=== PATIENT | female | born 1955 ===

== ENCOUNTER 2016-08-19 13:07 | Emergency (ER) | payer OTHER ==
[2016-08-19 13:14] VITALS: TEMP 98.2
--- NOTE | 2016-08-19 13:59 | C.PDOC ---
<Jessika Farah - Last Filed: 08/19/16 13:44> <George Newton - Last Filed: 08/19/16 14:20> Chief Complaint (Nursing): Psychiatric Evaluation Past Medical History - Medical History PMH: Depression - Social History Hx Alcohol Use: No Hx Substance Use: No - Immunization History Hx Tetanus Toxoid Vaccination: No Hx Influenza Vaccination: No Hx Pneumococcal Vaccination: No <Jessika Farah - Last Filed: 08/19/16 13:44> ED Course And Treatment O2 Sat by Pulse Oximetry: 100 <Jessika Farah - Last Filed: 08/19/16 13:44> Pulse Ox Interpretation: Normal Progress Note: Crisis d/w pt- already has opt psych and f/u @ [facility]. Cancel all labs and opt f/u. <George Newton - Last Filed: 08/19/16 14:20> Medical Decision Making <Jessika Farah - Last Filed: 08/19/16 13:44> <George Newton - Last Filed: 08/19/16 14:20> Medical Decision Making: depression, anxiety about financial and immigration status. (George Newton) Disposition <Jessika Farah - Last Filed: 08/19/16 13:44> Doctor Will See Patient In The: Office Counseled Patient/Family Regarding: Studies Performed, Diagnosis - Disposition Disposition Time: 14:20 <George Newton - Last Filed: 08/19/16 14:20> - Disposition Disposition: HOME/ ROUTINE Condition: GOOD - Clinical Impression Clinical Impression: Anxiety and depression
[2016-08-19 14:49] VITALS: BP 126/85; PULSE 72; RESP 16; O2SAT 98
--- NOTE | 2016-08-19 14:55 | C.PDOC ---
History Of Present Illness 60 year old patient, with a past medical history of depression, presents to the ED complaining of depression and anxiety about her domestic and financial situation. Patient is currently seen by a psychiatrist (Dr. Crandall-spelling is questionable as per patient) at [facility]. Patient denies suicidal ideation, homicidal ideation, or any other complaints at this time. Time Seen by Provider: 08/19/16 14:01 Chief Complaint (Nursing): Psychiatric Evaluation History Per: Patient History/Exam Limitations: no limitations Onset/Duration Of Symptoms: Other Current Symptoms Are (Timing): Still Present Suicide/Self Injury Attempted (Context): Cut Wrists Modifying Factor(s): None Severity: None Pain Scale Rating Of: 0 Associated Symptoms: Anxiety, Depression Recent travel outside of the [place]: No Past Medical History Reviewed: Historical Data, Nursing Documentation, Vital Signs Vital Signs: Last Vital Signs Temp 98.2 F 08/19/16 14:48 Pulse 72 08/19/16 14:48 Resp 16 08/19/16 14:48 BP 126/85 08/19/16 14:48 Pulse Ox 98 08/19/16 14:58 - Medical History PMH: Depression Family History: States: Unknown Family Hx - Social History Hx Alcohol Use: No Hx Substance Use: No - Immunization History Hx Tetanus Toxoid Vaccination: No Hx Influenza Vaccination: No Hx Pneumococcal Vaccination: No Review Of Systems Except As Marked, All Systems Reviewed And Found Negative. Psych: Positive for: Anxiety, Depression. Negative for: Suicidal ideation Physical Exam - Physical Exam Appears: Non-toxic, No Acute Distress Skin: Warm, Dry Head: Atraumatic, Normacephalic Neck: Normal ROM, Supple Chest: Symmetrical Cardiovascular: Rhythm Regular Respiratory: No Accessory Muscle Use Back: Normal Inspection Extremity: Normal ROM Neurological/Psych: Oriented x3 Gait: Steady ED Course And Treatment O2 Sat by Pulse Oximetry: 98 (room air) Pulse Ox Interpretation: Normal Progress Note: Plan: -Labs. Case was discussed with crisis who will evaluate the patient at bedside. Patient was evaluated by crisis and cleared for discharge. Disposition - Disposition Referrals: [facility] [Outside] [facility] [Outside] Disposition: HOME/ ROUTINE Disposition Time: 14:20 Condition: STABLE Additional Instructions: follow-up with Hugh Brenner as already arranged Return to ED if needed. Instructions: Anxiety (ED) - Clinical Impression Clinical Impression: Anxiety and depression - Scribe Statement The provider has reviewed the documentation as recorded by the Scribe Evita Gray Provider Attestation: All medical record entries made by the Scribe were at my direction and personally dictated by me. I have reviewed the chart and agree that the record accurately reflects my personal performance of the history, physical exam, medical decision making, and the department course for this patient. I have also personally directed, reviewed, and agree with the discharge instructions and disposition.
== END 2016-08-19 14:50 | disposition home or self-care (01) ==
LOC: C.ER 13:07
DX: F41.8 Other specified anxiety disorders (principal)

== ENCOUNTER 2016-12-05 18:03 | Emergency (ER) | payer OTHER ==
[2016-12-05] MEDS ORDERED: Lidocaine 5% Patch TD STA (19:36)
[2016-12-05] MEDS ORDERED: Lidocaine 5% Patch TD ONE (19:46)
[2016-12-05 20:05] LABS: RBC URINE 1 /hpf (0-3); URINE BACTERIA RARE (<OCC); URINE BILIRUBIN NEGATIVE (NEGATIVE); URINE BLOOD NEGATIVE (NEGATIVE); URINE COLOR Straw (YELLOW); URINE GLUCOSE (UA) NORMAL (Normal); URINE KETONE NEGATIVE (NEGATIVE); URINE LEUKOCYTE ESTERASE NEG Leu/uL (Negative); URINE PROTEIN NEGATIVE (NEGATIVE); URINE UROBILINOGEN NORMAL mg/dL (0.2-1.0); WBC URINE < 1 /hpf (0-5)
--- NOTE | 2016-12-05 20:28 | C.PDOC ---
History Of Present Illness 60 y/o male presents to ED with complaints of atraumatic low back pain radiating to left buttock area. Patient reports pain is progressively worse and had similar symptoms 1 week ago that resolved with massage. Patient admits to using anti inflammatory cream from [place] with no improvement. Patient denies fever, chills, nausea, vomiting, diarrhea, urinary symptoms, abdominal pain or any other complaints at this time. Time Seen by Provider: 12/05/16 19:24 Chief Complaint (Nursing): Back Pain History Per: Patient History/Exam Limitations: no limitations Onset/Duration Of Symptoms: Days Current Symptoms Are (Timing): Still Present Quality Of Discomfort: "Pain" Past Medical History Reviewed: Historical Data, Nursing Documentation, Vital Signs Vital Signs: Last Vital Signs Temp 97.7 F 12/05/16 21:02 Pulse 72 12/05/16 21:02 Resp 18 12/05/16 21:02 BP 110/68 12/05/16 21:02 Pulse Ox 97 12/05/16 21:02 - Medical History PMH: Depression Family History: States: No Known Family Hx - Social History Hx Alcohol Use: No Hx Substance Use: No - Immunization History Hx Tetanus Toxoid Vaccination: No Hx Influenza Vaccination: No Hx Pneumococcal Vaccination: No Review Of Systems Except As Marked, All Systems Reviewed And Found Negative. Constitutional: Negative for: Fever, Chills Gastrointestinal: Negative for: Nausea, Vomiting, Abdominal Pain, Diarrhea Genitourinary: Negative for: Dysuria, Frequency, Hematuria Musculoskeletal: Positive for: Back Pain Skin: Negative for: Rash Neurological: Negative for: Weakness, Numbness Physical Exam - Physical Exam Appears: Non-toxic, No Acute Distress Skin: Normal Color, Warm, Dry, No Rash Head: Atraumatic, Normacephalic Eye(s): bilateral: Normal Inspection Neck: Normal ROM Gastrointestinal/Abdominal: Soft, No Tenderness, No Guarding, No Rebound Back: Paraspinal Tenderness (Midline R>L), Straight Leg Raising (+ at 45 degrees ), Other (LS spine tenderness, Left buttock tenderness) Extremity: Normal ROM, Capillary Refill (<2 seconds) Neurological/Psych: Oriented x3, Normal Speech, Normal Motor, Normal Sensation ED Course And Treatment O2 Sat by Pulse Oximetry: 100 (RA) Pulse Ox Interpretation: Normal - Other Rad LS spine X-Ray: Interpreted by Me Interpretation: Moderate DJD. Medical Decision Making Medical Decision Making: Patient was treated with Toradol IM, Lidoderm, Valium with improvement. Patient is ambulatory in ED with no neuro deficit. Patient will be D/c home with PMD follow up. Disposition - Disposition Disposition: HOME/ ROUTINE Disposition Time: 20:53 Condition: IMPROVED Additional Instructions: Follow up with your PMD within 1-2 days. Return to ED if feel worse. Prescriptions: Lidocaine 5% [Lidoderm] 1 patch TP DAILY #30 patch Ibuprofen [Motrin Tab] 600 mg PO Q8 #30 tab traMADol [Ultram] 50 mg PO Q6 #30 tab diaZEpam [Valium] 2 mg PO TID #15 tab Instructions: Lumbar Radiculopathy (ED) Forms: e[employer] (Slovak) Print Language: BENGALI - Clinical Impression Clinical Impression: Lumbar radiculopathy - Scribe Statement The provider has reviewed the documentation as recorded by the Perez Bauman All medical record entries made by the Bellaibanita were at my direction and personally dictated by me. I have reviewed the chart and agree that the record accurately reflects my personal performance of the history, physical exam, medical decision making, and the department course for this patient. I have also personally directed, reviewed, and agree with the discharge instructions and disposition.
[2016-12-05 21:02] VITALS: BP 110/68; PULSE 72; RESP 18; TEMP 97.7
[2016-12-05 21:05] VITALS: O2SAT 100
--- NOTE | 2016-12-06 11:46 | RAD ---
PROCEDURE: Radiographs of the Lumbar Spine. HISTORY: back pain COMPARISON: No prior. FINDINGS: BONES: Normal curvature appreciated throughout the lumbar spine however there is an incidental compression fracture of T12 vertebral body which is mildly anteriorly wedged with fracture indeterminate in age. Multilevel spondylosis is appreciate the visualized inferior thoracic spine and upper lumbar spine. Vertebral body disc interspace heights are normal throughout the low lumbar spine. No suspicious lytic or blastic changes are identified. No spondylolisthesis. DISC SPACES: As per above. OTHER FINDINGS: None. IMPRESSION: No acute fracture spondylolisthesis appreciate throughout the lumbar spine although multilevel degenerate disc changes seen the upper lumbar spine inferior incidentally captured thoracic spine. An incidental compression fracture appears mild at the T12 vertebral body, of indeterminate age.
== END 2016-12-05 21:05 | disposition home or self-care (01) ==
LOC: C.ER 18:03
DX: M54.16 Radiculopathy, lumbar region (principal)
CPT/HCPCS: 72100; 81001; 96372; 99283; J1885

== ENCOUNTER 2017-06-22 08:42 | Day surgery (SDC) | payer OTHER ==
[2017-06-19 08:16] VITALS: BMI 33.8
[~2017-06-22 08:42] MED LIST: Lactated Ringer's 500 ML IV ONE; Phenylephrine 2.5% Opht Soln OS SCH; Tropicamide 1% Opht SOLUTION OS SCH
[2017-06-22] MEDS: Lidocaine 2% Inj (20ml) ONE ×2 (09:00→10:16)
[2017-06-22] MEDS: Chondroitin/Hyaluronate Opth Syringe KIT (0.55 ml-0.5 ml) IO ONE ×2 (09:00→10:22)
[2017-06-22] MEDS ORDERED: Lactated Ringer's 500 ML IV ONE (09:00)
[2017-06-22] MEDS: Carbachol 0.01% IO ONE ×2 (09:01→10:23)
[2017-06-22] MEDS: Tetracaine 0.5% Ophth (OR ONLY) ONE ×2 (09:04→10:16)
[2017-06-22] MEDS: Hyaluronidase Human, Recombi 150 U/ML VIAL ONE ×2 (09:40→10:16)
[2017-06-22] MEDS: Povidone Iodine Ophthalmic 5% Soln ONE ×2 (09:41→10:17)
[2017-06-22] MEDS ORDERED: Midazolam 2 MG/2 ML VIAL ONE (10:07)
[2017-06-22] MEDS ORDERED: Propofol 10 mg/ml Inj (20 ML) ONE (10:09)
[2017-06-22 12:01] VITALS: BP 124/74; PULSE 65; RESP 16; TEMP 97.5; O2SAT 95
--- NOTE | 2017-06-22 22:16 | OP ---
PROCEDURE DATE: PREOPERATIVE DIAGNOSIS: Nuclear mature cataract, left eye. POSTOPERATIVE DIAGNOSIS: Nuclear mature cataract, left eye. PROCEDURE: Cataract extraction with lens implant, left eye. SURGEON: Juan Maloney MD ANESTHESIA: Retrobulbar block. COMPLICATIONS: None. ESTIMATED BLOOD LOSS: Zero. DESCRIPTION OF PROCEDURE: The patient was brought to the operating room and properly identified. Anesthesia staff administered intravenous sedation and retrobulbar block was given to the surgical eye. The patient was then prepped and draped in the usual sterile fashion. Attention was turned to the surgical eye. A lid speculum was placed into interpalpebral fissure. Sitting temporally, two paracentesis incisions were made. The anterior chamber was filled with viscoelastic and a triplanar clear corneal incision was made. Using a cystitome, anterior capsular leaflet was created. Utrata forceps were used to create a continuous curvilinear capsulorrhexis. Balanced salt solution on a cannula was used to hydrodissect and hydrodelineate the lens. The lens was then phacoemulsified with no complications. Automated irrigation and aspiration was used to remove the cortex. Viscoelastic was used to deepen the anterior chamber. The lens was placed in the capsular bag. Automated irrigation and aspiration was used to remove the viscoelastic. The anterior chamber was filled with Miochol. The wounds were hydrated with balanced salt solution. There was noted to be no leak at the end of the case and the lens was well positioned. The lid speculum was removed. The eye was given antibiotics and steroids and covered with a patch and shield. The patient was returned to the recovery room in stable condition. Juan Maloney MD
== END 2017-06-22 11:55 | disposition home or self-care (01) ==
LOC: C.SDS 08:42 → MERGE 08:55 → C.SDS 11:55
PROVIDERS: ATTEND Ophthalmology
DX: H25.12 Age-related nuclear cataract, left eye (principal); Z79.84 Long term (current) use of oral hypoglycemic drugs; Z79.899 Other long term (current) drug therapy; E11.9 Type 2 diabetes mellitus without complications; I10 Essential (primary) hypertension
CPT/HCPCS: 66984; 82948; J2250; J2704; J3470; J7120; V2632

== ENCOUNTER 2018-06-08 09:47 | Emergency (ER) | payer OTHER ==
[2018-06-08 09:47] VITALS: BMI 33.8
[2018-06-08 10:02] VITALS: BP 132/87; PULSE 84; RESP 18; TEMP 98.6; O2SAT 97
[2018-06-08] MEDS ORDERED: Naproxen 550 mg Tab PO STA (10:27)
[2018-06-08] MEDS ORDERED: Naproxen 550 mg Tab PO ONE (10:41)
--- NOTE | 2018-06-08 10:42 | C.PDOC ---
History Of Present Illness 62 year old female presents to the ED for evaluation of an itching and burning sensation to her right anteriore and posterior shoulder and axillary regions which began yesterday. She also reports associated tingling. Patient tried scheduling an appointment with her PMD, but there were no open times available today. Patient admits to having varicella as a child. Patient denies fever, chills, chest pain, shortness of breath, or recent injuries. Time Seen by Provider: 06/08/18 10:04 Chief Complaint (Nursing): Upper Extremity Problem/Injury History Per: Patient History/Exam Limitations: no limitations Onset/Duration Of Symptoms: Hrs Current Symptoms Are (Timing): Still Present Additional History Per: Patient Past Medical History Reviewed: Historical Data, Nursing Documentation, Vital Signs Vital Signs: Last Vital Signs Temp 98.6 F 06/08/18 09:53 Pulse 84 06/08/18 09:53 Resp 18 06/08/18 09:53 BP 132/87 06/08/18 09:53 Pulse Ox 97 06/08/18 09:53 - Medical History PMH: Depression, HTN Denies: Diabetes, Hepatitis, HIV, Chronic Kidney Disease, Seizures, Sexually Transmitted Disease Surgical History: No Surg Hx Family History: States: Unknown Family Hx - Social History Hx Alcohol Use: No Hx Substance Use: No - Immunization History Hx Tetanus Toxoid Vaccination: No Hx Influenza Vaccination: No Hx Pneumococcal Vaccination: No Review Of Systems Constitutional: Negative for: Fever, Chills Cardiovascular: Negative for: Chest Pain Respiratory: Negative for: Shortness of Breath Skin: Positive for: Other (itching, burning and tingling sensation to right anterior and posterior shoulder/axilla ) Physical Exam - Physical Exam Appears: Non-toxic, No Acute Distress Skin: Normal Color, Warm, Dry, Other (C5/C6 dermatome area: several papular areas, and one small vesicular area on the right postior and lateral shoulder) Head: Atraumatic, Normacephalic Eye(s): bilateral: Normal Inspection Oral Mucosa: Moist Neck: Supple Chest: Symmetrical, No Deformity, No Tenderness Cardiovascular: Rhythm Regular, No Murmur Respiratory: Normal Breath Sounds, No Rales, No Rhonchi, No Wheezing Extremity: Normal ROM, Capillary Refill (less than 2 seconds ) Pulses: Left Radial: Normal, Right Radial: Normal Neurological/Psych: Oriented x3, Normal Speech, Normal Cognition, Normal Motor, Normal Sensation ED Course And Treatment O2 Sat by Pulse Oximetry: 97 (on RA) Pulse Ox Interpretation: Normal Progress Note: Acyclovir PO, Naproxen PO and prednisone PO given. Disposition Counseled Patient/Family Regarding: Diagnosis, Need For Followup, Rx Given - Disposition Referrals: [facility] [Outside] Disposition: HOME/ ROUTINE Disposition Time: 10:45 Condition: STABLE Additional Instructions: FOLLOW UP WITH YOUR DOCTOR/CLINIC IN 1-2 DAYS USE MEDICATIONS DIRECTED RETURN TO EMERGENCY ROOM IF SYMPTOMS WORSEN SEGUIR CON ARVIZU MDICO / CLNICA EN 1-2 WANG UTILICE MEDICAMENTOS COMPA SE DIRIGE VUELVA A LA DONNA DE EMERGENCIA SI LOS SNTOMAS SE HACEN PEOR Prescriptions: Acyclovir [Zovirax] 800 mg PO 5XD #35 tablet Naproxen [Naprosyn] 1 tab PO BID PRN #25 tab PRN Reason: Pain predniSONE [predniSONE Tab] 60 mg PO DAILY #15 tab Instructions: Carloz (DC) Forms: ttwick (Khmer) Print Language: SERBIAN - Clinical Impression Clinical Impression: Carloz - Scribe Statement The provider has reviewed the documentation as recorded by the Scribe (Katie Gray) Provider Attestation: All medical record entries made by the Scribe were at my direction and personally dictated by me. I have reviewed the chart and agree that the record accurately reflects my personal performance of the history, physical exam, medical decision making, and the department course for this patient. I have also personally directed, reviewed, and agree with the discharge instructions and disposition.
== END 2018-06-08 10:58 | disposition home or self-care (01) ==
LOC: C.ER 09:47
DX: B02.9 Zoster without complications (principal)

== ENCOUNTER 2018-08-21 07:35 | Day surgery (SDC) | payer OTHER ==
[2018-08-20 10:52] VITALS: BMI 29.2
--- NOTE | 2018-08-21 09:09 | CP.SDSHP ---
<IsaacPhillip - Last Filed: 08/21/18 09:06> Same Day Surgery H & P - History Proposed Procedure: EGD Pre-Op Diagnosis: epigastric pain. persistent reflux - Previous Medical/Surgical History Cardiac: Hypertension Endocrine/Metabolic: Diabetes Misc: Other (GERD, depression) Previous Surgical History: L cataract. Total hysterectomy - Allergies Allergies: Allergies No Known Allergies Allergy (Verified 06/08/18 09:59) - Current Medications Current Medications: pepcid metformin escitalopram lisinopril Multivitamin - Physical Exam General Appearance: no acute distress Mental Status: Alert & Oriented x3 Neuro: WNL Heart: WNL Lungs: WNL GI: WNL - {Optional Preform as Required} Abdomen: WNL - Impression Impression: epigastric pain. persistent epigastric pain Pt. Evaluated Today:Candidate for Anesthesia & Procedure: Yes - Date & Time Date: 08/21/18 Time: 09:00 Short Stay Discharge - Short Stay Discharge Admitting Diagnosis/Reason for Visit: HEARTBURN / GERD Disposition: HOME/ ROUTINE <Guevara Ramírez - Last Filed: 08/21/18 09:17> Same Day Surgery H & P - Previous Medical/Surgical History Misc: Other (GERD, depression, h/o Peptic ulcer disease 2009) - Allergies Allergies: Allergies No Known Allergies Allergy (Verified 06/08/18 09:59) - Physical Exam Vital Signs: Vital Signs 08/21/18 09:02 Temperature 96.8 F L Pulse Rate 97 H Respiratory 18 Rate Blood Pressure 111/80 O2 Sat by Pulse 99 Oximetry Attending/Attestation - Attestation I have personally seen and examined this patient.: Yes I have fully participated in the care of the patient.: Yes I have reviewed all pertinent clinical information: Yes Notes (Text): 08/21/18 09:17 Epigastric pain, heartburn and h/o PUD in the past in spite of high dose PPI. EGD to evaluate source. Risks/benefits discussed in detail and patient understands/accepts. As above.
[2018-08-21] MEDS ORDERED: Lactated Ringer's 500 ML IV ONE (09:17)
[2018-08-21] MEDS ORDERED: Propofol 10 mg/ml Inj (20 ML) ONE (09:25)
[2018-08-21 10:14] VITALS: RESP 20; TEMP 98.9
[2018-08-21 10:15] VITALS: BP 122/78; O2SAT 100
[2018-08-21 12:21] VITALS: PULSE 65
== END 2018-08-21 12:15 | disposition home or self-care (01) ==
LOC: C.ENDO 07:35
PROVIDERS: ATTEND Internal Medicine Gastroenterology
DX: K21.9 Gastro-esophageal reflux disease without esophagitis (principal); K44.9 Diaphragmatic hernia without obstruction or gangrene; K25.9 Gastric ulcer, unspecified as acute or chronic, without hemorrhage or perforation; E11.9 Type 2 diabetes mellitus without complications; B96.81 Helicobacter pylori [H. pylori] as the cause of diseases classified elsewhere; K29.50 Unspecified chronic gastritis without bleeding; Z79.84 Long term (current) use of oral hypoglycemic drugs; Z79.899 Other long term (current) drug therapy; I10 Essential (primary) hypertension
CPT/HCPCS: 43235; 82948; 88305; 88312; 88313; 88342; J2001; J2704; J7120